=== PATIENT | female | born 1945 | race African-American/Black ===

== ENCOUNTER 2018-12-28 08:49 | Inpatient (IN) | payer BC, MEDICAID ==
[~2018-12-28] VITALS: Ht 157.5 cm; Wt 64.4 kg
[2018-12-28] MEDS ORDERED: TRAMADOL 50MG TABLET PO ONE (09:15)
[2018-12-28] MEDS ORDERED: LEVOFLOXACIN 750MG PREMIX 150 ML IV ONE (10:15)
[2018-12-28 11:03] LABS: PROTHROMBIN TIME 10.1 sec (9.6-11.0)
[2018-12-28 11:14] LABS: CHLORIDE 100 mEq/L (98-107)
[2018-12-28 12:13] LABS: CLARITY URINE CLEAR (CLEAR); COLOR URINE YELLOW (YELLOW); KETONES URINE TRACE (NEGATIVE); LEUKOCYTE ESTERASE URINE TRACE (NEGATIVE); NITRITE URINE NEGATIVE (NEGATIVE); OCCULT BLOOD URINE TRACE (NEGATIVE); PH URINE 6.5 (4.5-8.0); PROTEIN URINE TRACE (NEGATIVE); SPECIFIC GRAVITY URINE 1.014 (1.005-1.030)
[2018-12-28 12:54] LABS: HEMATOCRIT. 37.9 % (36.0-48.0); HEMOGLOBIN. 12.5 g/dL (12.0-16.0); MEAN CORPUSCULAR HEMOGLOBIN 29.5 pg (28.0-32.0); MEAN CORPUSCULAR VOLUME 89.6 fL (81.0-99.0); MEAN PLATELET VOLUME 8.1 fl (7.4-10.4); PLATELET 441 x1000/uL (130-400); RED BLOOD CELL COUNT 4.22 mill/uL (4.2-5.4); RED CELL DISTRIBUTION WIDTH 13.7 % (11.6-14.6)
[2018-12-28 13:23] LABS: PLATELET ESTIMATE INCREASED
[2018-12-28] MEDS ORDERED: CLONIDINE 0.1MG TABLET PO PRN (14:30)
[2018-12-28] MEDS ORDERED: ONDANSETRON HCL 4MG/2ML INJ IV PRN (14:30)
[2018-12-28] MEDS ORDERED: IPRATROPIUM/ALBUTEROL 0.5-3(2.5)MG/3ML NEB INH PRN (14:30)
[2018-12-28] MEDS ORDERED: ACETAMINOPHEN 325MG TABLET PO PRN (14:30)
[2018-12-28] MEDS: HYDROCODONE/ACETAMINOPHEN 5/325MG TABLET PO PRN (15:25)
[2018-12-28 16:00] VITALS: BP 139/65
[2018-12-28] MEDS: ENOXAPARIN 40MG/0.4ML SYR SUBCUT SCH (17:00)
[2018-12-28] MEDS ORDERED: FLUT1DIS3 INH (17:11)
[2018-12-28] MEDS ORDERED: ENAL20TA67 MT (17:11)
[2018-12-28] MEDS ORDERED: [UNRECOGNIZED DRUG - OTHER] (17:11)
[2018-12-28] MEDS ORDERED: AMLO10TA4 MT (17:11)
[2018-12-28] MEDS: PREDNISONE 20MG TABLET PO SCH (18:37)
[2018-12-28 20:00] VITALS: BP 168/73
[2018-12-28 23:18] LABS: CREATINE KINASE 38 IU/L (26-192)
[2018-12-29] VITALS: BP 116/71
[2018-12-29] MEDS ORDERED: VANCOMYCIN 1 G PREMIX 200 ML IV NR
[2018-12-29 04:00] VITALS: BP 127/72
[2018-12-29 06:43] LABS: HEMATOCRIT. 36.6 % (36.0-48.0); HEMOGLOBIN. 12.1 g/dL (12.0-16.0); MEAN CORPUSCULAR HEMOGLOBIN 29.7 pg (28.0-32.0); MEAN PLATELET VOLUME 8.1 fl (7.4-10.4); PLATELET 418 x1000/uL (130-400); RED BLOOD CELL COUNT 4.06 mill/uL (4.2-5.4); RED CELL DISTRIBUTION WIDTH 13.6 % (11.6-14.6)
[2018-12-29 08:00] VITALS: BP 131/73
[2018-12-29] MEDS: PREDNISONE 20MG TABLET PO SCH (08:05)
[2018-12-29] MEDS: HYDROCODONE/ACETAMINOPHEN 5/325MG TABLET PO PRN (08:06)
[2018-12-29 08:25] LABS: CHLORIDE 104 mEq/L (98-107)
[2018-12-29 08:39] LABS: CREATINE KINASE 49 IU/L (26-192); LDL CHOLESTEROL 82 mg/dL (5-100)
[2018-12-29 08:40] LABS: HDL CHOLESTEROL 48 mg/dL (40-59); T4 FREE 1.25 ng/dL (0.76-1.46)
[2018-12-29] MEDS ORDERED: LEVOFLOXACIN 250MG PREMIX 50 ML IV SCH (09:00)
[2018-12-29] MEDS: LEVOFLOXACIN 250MG PREMIX 50 ML IV SCH (10:23)
[2018-12-29] MEDS: VANCOMYCIN 1 G PREMIX 200 ML IV SCH (11:58)
[2018-12-29 12:00] VITALS: BP 143/72
[2018-12-29 15:38] LABS: PLATELET ESTIMATE INCREASED
[2018-12-29 16:00] VITALS: BP 120/65
[2018-12-29] MEDS: ENOXAPARIN 40MG/0.4ML SYR SUBCUT SCH (18:03)
[2018-12-29 20:00] VITALS: BP 122/67
[2018-12-30] VITALS: BP 127/72
[2018-12-30 04:00] VITALS: BP 126/75
[2018-12-30] MEDS: VANCOMYCIN 1 G PREMIX 200 ML IV SCH (05:06)
[2018-12-30 07:13] LABS: BASOPHILS % 0.5 % (0.0-2.0); EOSINOPHILS % 1.1 % (0.0-5.0); HEMATOCRIT. 37.2 % (36.0-48.0); HEMOGLOBIN. 12.2 g/dL (12.0-16.0); LYMPHOCYTES % 12.1 % (20.0-50.0); MEAN CORPUSCULAR HEMOGLOBIN 29.6 pg (28.0-32.0); MEAN CORPUSCULAR VOLUME 90.3 fL (81.0-99.0); MEAN PLATELET VOLUME 8.3 fl (7.4-10.4); MONOCYTES % 9.1 % (2.0-8.0); NEUTROPHILS % 77.2 % (40.0-76.0); PLATELET 500 x1000/uL (130-400); RED BLOOD CELL COUNT 4.12 mill/uL (4.2-5.4); RED CELL DISTRIBUTION WIDTH 13.9 % (11.6-14.6)
[2018-12-30 07:36] LABS: CHLORIDE 104 mEq/L (98-107)
[2018-12-30 08:00] VITALS: BP 132/65
[2018-12-30] MEDS: HYDROCODONE/ACETAMINOPHEN 5/325MG TABLET PO PRN (08:29)
[2018-12-30] MEDS: PREDNISONE 20MG TABLET PO SCH (08:31)
[2018-12-30 12:00] VITALS: BP 140/71
[2018-12-30] MEDS: LEVOFLOXACIN 250MG PREMIX 50 ML IV SCH (12:59)
[2018-12-30] MEDS ORDERED: METHYLPREDNISOLONE SOD SUCC 40 MG/ML VIAL IV SCH (13:00)
[2018-12-30] MEDS ORDERED: FAMOTIDINE 20MG/2ML VIAL IV SCH (13:00)
[2018-12-30 13:46] LABS: BG BASE EXCESS 2.5 mmol/L (-2.0-2.0); BG CARBOXYHEMOGLOBIN 0.7 % (0.5-1.5); BG FRACTION INSPIRED OXYGEN 21; BG HCO3 ACT 27.8 mmol/L (22.0-26.0); BG METHEMOGLOBIN 0.2 % (0.0-1.5); BG OXYHEMOGLOBIN 94.1 % (94.0-97.0); BG PCO2 45.1 mmHg (35.0-45.0); BG PH 7.407 (7.350-7.450); BG PO2 74.7 mmHg (75.0-100.0); BG SAMPLE SITE LEFT RADIAL; BG TOTAL HEMOGLOBIN 14.2 g/dL (12.0-18.0); BG VENT MODE ROOM AIR
[2018-12-30] MEDS ORDERED: IPRATROPIUM/ALBUTEROL 0.5-3(2.5)MG/3ML NEB HHN SCH (16:00)
[2018-12-30 16:44] VITALS: BP 142/72
[2018-12-30] MEDS ORDERED: VANCOMYCIN 750 MG PREMIX 150 ML IV SCH (20:00)
== END 2018-12-30 17:40 | disposition home or self-care (01) | DRG 190 ==
LOC: ER 08:55 → 7WST 13:14 → ENRESERV 15:34
PROVIDERS: ADMIT Internal Medicine; ATTEND Internal Medicine
DX: J44.0 Chronic obstructive pulmonary disease with (acute) lower respiratory infection (principal); J18.1 Lobar pneumonia, unspecified organism; N39.0 Urinary tract infection, site not specified; J44.1 Chronic obstructive pulmonary disease with (acute) exacerbation; I10 Essential (primary) hypertension; H40.9 Unspecified glaucoma; R07.89 Other chest pain; M25.511 Pain in right shoulder; E89.0 Postprocedural hypothyroidism; T38.0X5A Adverse effect of glucocorticoids and synthetic analogues, initial encounter; Y92.89 Other specified places as the place of occurrence of the external cause; Z79.899 Other long term (current) drug therapy; Z85.850 Personal history of malignant neoplasm of thyroid; Z99.81 Dependence on supplemental oxygen; Z79.51 Long term (current) use of inhaled steroids; Z87.01 Personal history of pneumonia (recurrent); Z88.0 Allergy status to penicillin
CPT/HCPCS: 36415; 36600; 71045; 73030; 80048; 80061; 80202; 82375; 82550; 82805; 84439; 84443; 84484; 96365; 99285; J1650; J1956; J2920; J3370; J7050; J7512